=== PATIENT | male | born 1995 | race Caucasian/White ===

== ENCOUNTER 2023-05-10 10:44 | Emergency (ER) | payer MEDICAID, OTHER ==
[~2023-05-10] VITALS: Ht 180.3 cm; Wt 77.4 kg
[~2023-05-10 10:44] MED LIST: NO HOME MEDS
[2023-05-10 10:46] VITALS: BP 148/81; PULSE 118; RESP 16; TEMP 97.7; O2SAT 99
== END 2023-05-10 14:27 | disposition home or self-care (01) ==
LOC: ER 10:45
DX: Z00.00 Encounter for general adult medical examination without abnormal findings (principal); F17.200 Nicotine dependence, unspecified, uncomplicated
CPT/HCPCS: 99281

== ENCOUNTER 2024-02-12 14:11 | Emergency (ER) | payer MEDICAID ==
[~2024-02-12] VITALS: Ht 180.3 cm; Wt 100.4 kg
[2024-02-12 14:13] VITALS: BP 136/79; PULSE 87; O2SAT 98
[2024-02-12 15:48] VITALS: RESP 16; TEMP 98.7
== END 2024-02-12 15:49 | disposition home or self-care (01) ==
LOC: ER 14:12
DX: S69.92XA Unspecified injury of left wrist, hand and finger(s), initial encounter (principal); M79.645 Pain in left finger(s); M79.89 Other specified soft tissue disorders; V29.888A Rider (driver) (passenger) of other motorcycle injured in other specified transport accidents, initial encounter; Y93.89 Activity, other specified; Y92.89 Other specified places as the place of occurrence of the external cause; Y99.8 Other external cause status
CPT/HCPCS: 29125; 73110; 73130; 99284